=== PATIENT | male | born 1965 | race African-American/Black ===

== ENCOUNTER 2021-11-02 00:25 | Emergency (ER) | payer MEDICAID, OTHER ==
[~2021-11-02] VITALS: Ht 177.8 cm; Wt 108.0 kg
[2021-11-02] MEDS ORDERED: ACETAMINOPHEN 325MG TABLET PO ONE (01:00)
[2021-11-02 02:04] LABS: BASOPHILS % 0.6 % (0.0-2.0); HEMATOCRIT. 39.1 % (42.0-52.0); LYMPHOCYTES % 19.3 % (20.0-50.0); MEAN CORPUSCULAR HEMOGLOBIN 30.6 pg (28.0-32.0); MEAN CORPUSCULAR VOLUME 92.2 fL (80.0-94.0); MEAN PLATELET VOLUME 8.2 fl (7.4-10.4); MONOCYTES % 11.1 % (2.0-8.0); PLATELET 306 x1000/uL (130-400); RED BLOOD CELL COUNT 4.24 mill/uL (4.7-6.1); RED CELL DISTRIBUTION WIDTH 15.6 % (11.6-14.6)
[2021-11-02] MEDS ORDERED: ACETAMINOPHEN 325MG TABLET PO NR (02:45)
[2021-11-02 03:29] LABS: CHLORIDE 110 mEq/L (98-107)
[2021-11-02] MEDS ORDERED: ASPIRIN 325MG EC TABLET PO NR (04:45)
[2021-11-02 13:31] VITALS: BP 149/82
== END 2021-11-02 13:32 ==
LOC: ER 00:25 → CANBEDREQ 15:35
DX: R07.89 Other chest pain (principal); I10 Essential (primary) hypertension; E11.9 Type 2 diabetes mellitus without complications; E78.00 Pure hypercholesterolemia, unspecified; Z95.0 Presence of cardiac pacemaker
CPT/HCPCS: 36415; 71045; 80053; 83880; 84484; 85025; 93005; 99285